=== PATIENT | male | born 1965 | race African-American/Black ===

== ENCOUNTER 2023-03-26 15:33 | Emergency (ER) | payer MEDICAID ==
[~2023-03-26] VITALS: Ht 188 cm; Wt 79.4 kg
[~2023-03-26 15:33] MED LIST: ABILIFY
[2023-03-26] MEDS ORDERED: KETOROLAC TROMETHAMINE 15 MG/ML VIAL ONE (15:51)
[2023-03-26] MEDS ORDERED: CYCLOBENZAPRINE 10 MG TABLET ONE (15:51)
[2023-03-26] MEDS ORDERED: CYCLOBENZAPRINE 10 MG TABLET PO ONE (16:00)
[2023-03-26] MEDS ORDERED: KETOROLAC TROMETHAMINE 15 MG/ML VIAL IM ONE (16:00)
[2023-03-26] MEDS ORDERED: LIDO30AD10 TP (16:35)
[2023-03-26] MEDS ORDERED: NAPR-1164 PO (16:35)
[2023-03-26] MEDS ORDERED: CYCL5TAB PO (16:35)
[2023-03-26 16:47] VITALS: BP 123/88; TEMP 98; O2SAT 97
== END 2023-03-26 16:47 | disposition home or self-care (01) ==
LOC: ER 15:33
DX: S49.92XA Unspecified injury of left shoulder and upper arm, initial encounter (principal); R07.89 Other chest pain; F32.A Depression, unspecified; F41.9 Anxiety disorder, unspecified; V89.2XXA Person injured in unspecified motor-vehicle accident, traffic, initial encounter; Y93.89 Activity, other specified; Y92.89 Other specified places as the place of occurrence of the external cause; Y99.8 Other external cause status
CPT/HCPCS: 99284; 96372; 93005; 73010; 73030; J1885